=== PATIENT | male | born 1985 ===

== ENCOUNTER → 2020-04-05 15:10 | Outpatient (CLI) | payer OTHER, SELFPAY ==
--- NOTE | ~2020-04-05 | US_ITS ---
US renal BI 04/05/2020 15:38 Procedure: Realtime transabdominal ultrasound of the kidneys and bladder. Indication: Abdominal pain and flank pain. Comparison: No prior studies for comparison. Findings: Renal echotexture is normal bilaterally without hydronephrosis, contour deforming mass or r enal calculus. The right kidney measures 11.7 cm and left kidney measures 11.3 cm. Bladder within no rmal limits. Impression: 1: Unremarkable renal ultrasound. No stones, masses or hydronephrosis. Reviewed, dictated and finalized at location B. [employer] Impression: 1: Unremarkable renal ultrasound. No stones, masses or hydronephrosis.
== END ==
PROVIDERS: PCP Nurse Practitioner Family; Visit Provider Nurse Practitioner Family
DX: R10.9 Unspecified abdominal pain (principal)
CPT/HCPCS: 76775

== ENCOUNTER 2023-09-10 10:11 | Outpatient (CLI) | payer OTHER, SELFPAY ==
--- NOTE | ~2023-09-10 | CT_ITS ---
EXAMINATION: CT sinus wo con DATE: 09/10/2023 10:26 INDICATION: Chronic sinusitis TECHNIQUE: Computed tomography (CT) of the paranasal sinuses was performed without intravenous contra st. The dose-length product was 301.24 mGy-cm. Automated exposure control and iterative reconstructio n technique were employed. COMPARISON: None FINDINGS: There is mild mucosal thickening of the maxillary sinuses. No air-fluid levels. Ostiomeatal units are patent. Rightward nasal septal deviation to the right. Mastoids are pneumatized. IMPRESSION: 1. Mild maxillary sinus disease. Reviewed, dictated and finalized at location B.
== END 2023-09-10 10:12 ==
PROVIDERS: PCP Otolaryngology; Visit Provider Otolaryngology
DX: J01.00 Acute maxillary sinusitis, unspecified (principal)
CPT/HCPCS: 70486